=== PATIENT | female | born 2000 | race Caucasian/White ===

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

== ENCOUNTER 2022-03-16 07:31 | Outpatient (CLI) | payer OTHER ==
[~2022-03-16 07:31] MED LIST: DOLOGEN 325-11 EACH PO
== END 2022-03-16 07:40 | disposition home or self-care (01) ==
LOC: RAD 07:31
PROVIDERS: ATTEND Specialist
DX: M25.562 Pain in left knee (principal)